=== PATIENT | female | born 1975 | race Asian ===

== ENCOUNTER 2019-06-01 07:21 | Emergency (ER) | payer BC, MEDICAID ==
[~2019-06-01] VITALS: Ht 154.9 cm; Wt 59.4 kg
[2019-06-01 07:29] VITALS: BP 124/74
--- NOTE | 2019-06-01 08:23 | NUR ---
No acute changes from baseline Patient discharged to home in stable condition. Written and verbal after care instructions given. Patient verbalizes understanding of instruction.
== END 2019-06-01 08:24 | disposition home or self-care (01) ==
LOC: ER 08:02
DX: S00.83XA Contusion of other part of head, initial encounter (principal); R51 Headache; F10.10 Alcohol abuse, uncomplicated; Y90.9 Presence of alcohol in blood, level not specified; V49.59XA Passenger injured in collision with other motor vehicles in traffic accident, initial encounter; Y93.89 Activity, other specified; Y92.488 Other paved roadways as the place of occurrence of the external cause; Y99.8 Other external cause status